=== PATIENT | female | born 1995 | race African-American/Black ===

== ENCOUNTER 2016-09-23 14:53 | Emergency (ER) | payer OTHER ==
[~2016-09-23] VITALS: Ht 160 cm; Wt 58.0 kg
[~2016-09-23 14:53] MED LIST: ALBUTEROL; CLARITIN; CONCERTA; PREDNISONE
[2016-09-23] MEDS ORDERED: ACETAMINOPHEN 500MG TABLET PO ONE (19:00)
[2016-09-23 19:09] LABS: BASOPHILS % 0.7 % (0.0-2.0); HEMATOCRIT. 36.4 % (36.0-48.0); HEMOGLOBIN. 12.2 g/dL (12.0-16.0); LYMPHOCYTES % 24.3 % (20.0-50.0); MEAN CORPUSCULAR HEMOGLOBIN 30.1 pg (28.0-32.0); MEAN CORPUSCULAR HGB CONC 33.5 g/dL (31.0-37.0); MEAN CORPUSCULAR VOLUME 89.9 fL (81.0-99.0); MEAN PLATELET VOLUME 8.8 fl (7.4-10.4); MONOCYTES % 7.8 % (2.0-8.0); NEUTROPHILS % 66.2 % (40.0-76.0); PLATELET 232 x1000/uL (130-400); RED BLOOD CELL COUNT 4.05 mill/uL (4.2-5.4); RED CELL DISTRIBUTION WIDTH 12.8 % (11.6-14.6); WHITE BLOOD COUNT 8.9 x1000/uL (4.5-11.0)
[2016-09-23 19:14] LABS: CHLORIDE 106 mEq/L (98-107); INDEX HEMOLYSI 1 (1-3); INDEX ICTERIC 1 (1-4); INDEX LIPEMIC 1 (1-3)
[2016-09-23 19:19] LABS: ALBUMIN 3.3 g/dL (3.4-5.0); ANION GAP 12; CARBON DIOXIDE 25 mEq/L (21-32); UREA NITROGEN BLOOD 10 mg/dL (7-21)
[2016-09-23 19:20] LABS: ALANINE AMINOTRANSFERASE 32 IU/L (13-61); eGFR > 60 mL/min (>60)
[2016-09-23 19:49] VITALS: BP 138/81
[2016-09-23 20:01] LABS: CLARITY URINE CLEAR (CLEAR); COLOR URINE YELLOW (YELLOW); GLUCOSE URINE NEGATIVE (NEGATIVE); KETONES URINE NEGATIVE (NEGATIVE); LEUKOCYTE ESTERASE URINE NEGATIVE (NEGATIVE); NITRITE URINE NEGATIVE (NEGATIVE); OCCULT BLOOD URINE NEGATIVE (NEGATIVE); PH URINE 7.5 (4.5-8.0); PROTEIN URINE NEGATIVE (NEGATIVE); SPECIFIC GRAVITY URINE 1.021 (1.005-1.030)
== END 2016-09-23 20:35 | disposition home or self-care (01) ==
LOC: ER 14:54
DX: O26.891 Other specified pregnancy related conditions, first trimester (principal); O99.511 Diseases of the respiratory system complicating pregnancy, first trimester; Z3A.08 8 weeks gestation of pregnancy; R51 Headache
CPT/HCPCS: 36415; 80053; 81003; 85025; 99284

== ENCOUNTER 2016-10-30 13:22 | Emergency (ER) | payer OTHER ==
[~2016-10-30] VITALS: Ht 162.6 cm; Wt 57.0 kg
[2016-10-30 13:44] VITALS: BP 145/88
[2016-10-30] MEDS ORDERED: ALBUTEROL (0.083%) 2.5MG/3ML NEB HHN ONE (14:00)
== END 2016-10-30 16:16 | disposition home or self-care (01) ==
LOC: ER 13:22
DX: O99.519 Diseases of the respiratory system complicating pregnancy, unspecified trimester (principal); J45.909 Unspecified asthma, uncomplicated
CPT/HCPCS: 94640; 99283; J7611

== ENCOUNTER 2017-10-18 16:57 | Emergency (ER) | payer MEDICAID, OTHER ==
[~2017-10-18] VITALS: Ht 160 cm; Wt 58.0 kg
[2017-10-18] MEDS ORDERED: ACETAMINOPHEN 500MG TABLET PO ONE (18:45)
[2017-10-18 19:16] VITALS: BP 133/74
== END 2017-10-18 19:19 | disposition home or self-care (01) ==
LOC: ER 18:03
DX: J06.9 Acute upper respiratory infection, unspecified (principal); S63.602A Unspecified sprain of left thumb, initial encounter; J45.909 Unspecified asthma, uncomplicated; X58.XXXA Exposure to other specified factors, initial encounter; Y93.89 Activity, other specified; Y92.018 Other place in single-family (private) house as the place of occurrence of the external cause
CPT/HCPCS: 87804; 99284

== ENCOUNTER 2018-01-02 20:16 | Emergency (ER) | payer OTHER ==
[~2018-01-02] VITALS: Ht 160 cm; Wt 70.0 kg
[2018-01-02] MEDS ORDERED: IBUPROFEN 600MG TABLET PO ONE (23:30)
[2018-01-03 02:52] VITALS: BP 111/69
== END 2018-01-03 04:24 | disposition home or self-care (01) ==
LOC: ER 20:16
DX: S92.424B Nondisplaced fracture of distal phalanx of right great toe, initial encounter for open fracture (principal); J45.909 Unspecified asthma, uncomplicated; W22.8XXA Striking against or struck by other objects, initial encounter; Y93.89 Activity, other specified; Y92.018 Other place in single-family (private) house as the place of occurrence of the external cause
CPT/HCPCS: 12001; 73660; 99284; Z7610

== ENCOUNTER 2022-07-13 05:13 | Emergency (ER) | payer MEDICAID, OTHER ==
[~2022-07-13] VITALS: Ht 162.6 cm; Wt 80.0 kg
[2022-07-13] MEDS ORDERED: METHYLPREDNISOLONE SOD SUCC 125 MG/2 ML VIAL IV STA (05:32)
[2022-07-13] MEDS ORDERED: IPRATROPIUM BROMIDE (0.02%) 0.5MG/2.5ML NEB HHN STA (05:32)
[2022-07-13 05:55] LABS: BASOPHILS % 1.1 % (0.0-2.0); EOSINOPHILS % 7.5 % (0.0-5.0); HEMATOCRIT. 43.5 % (36.0-48.0); HEMOGLOBIN. 14.7 g/dL (12.0-16.0); MEAN CORPUSCULAR VOLUME 88.5 fL (81.0-99.0); MEAN PLATELET VOLUME 8.9 fl (7.4-10.4); MONOCYTES % 6.4 % (2.0-8.0); PLATELET 271 x1000/uL (130-400); RED BLOOD CELL COUNT 4.91 mill/uL (4.2-5.4); RED CELL DISTRIBUTION WIDTH 12.3 % (11.6-14.6)
[2022-07-13] MEDS: ALBUTEROL (0.083%) 2.5MG/3ML NEB HHN SCH ×3 (06:01→07:30)
[2022-07-13 06:02] LABS: CHLORIDE 107 mEq/L (98-107)
[2022-07-13] MEDS ORDERED: POTASSIUM CHLORIDE 20MEQ TABLET SR PO NR (07:45)
[2022-07-13] MEDS ORDERED: P20 MT (08:47)
[2022-07-13] MEDS ORDERED: ALBU6.7H3 INH (08:47)
[2022-07-13 08:54] VITALS: BP 153/72
== END 2022-07-13 08:55 | disposition home or self-care (01) ==
LOC: ER 05:13
DX: J45.901 Unspecified asthma with (acute) exacerbation (principal); E87.6 Hypokalemia; R00.0 Tachycardia, unspecified; R03.0 Elevated blood-pressure reading, without diagnosis of hypertension
CPT/HCPCS: 36415; 71045; 80053; 85025; 93005; 94640; 96374; 99285; J2930; Z7610